=== PATIENT | female | born 1980 | race Caucasian/White ===

== ENCOUNTER 2018-07-15 17:38 | Emergency (ER) | payer BC ==
[~2018-07-15] VITALS: Ht 170.2 cm; Wt 65.0 kg
[2018-07-15] MEDS ORDERED: BENZ-51 PO (18:19)
[2018-07-15] MEDS ORDERED: GUAIF10 PO (18:19)
[2018-07-15] MEDS ORDERED: OSEL75 PO (18:19)
[2018-07-15 18:53] VITALS: BP 121/74
== END 2018-07-15 19:52 | disposition home or self-care (01) ==
LOC: EMS 17:39
DX: J11.1 Influenza due to unidentified influenza virus with other respiratory manifestations (principal); R51 Headache; Z91.018 Allergy to other foods